=== PATIENT | male | born 1945 | race Caucasian/White ===

== ENCOUNTER 2024-10-16 09:59 | Outpatient (OUT) | payer OTHER, SELFPAY ==
--- NOTE | 2024-10-16 10:02 | US_ITS ---
The [address] [address] Patient Name: KYRA PRATER MRN: [id number] date: 1945 Sex: M Assigned Patient Location: US Current Patient Location: US Accession/Order Number: [id number] Exam Date: 10/16/2024 10:25 Report Date: 10/16/2024 12:50 At the request of: CELIO VILLEGAS Procedure: US abdominal aortic aneurysm EXAM: US abdominal aortic aneurysm HISTORY: Abdominal Aortic Aneurysm COMPARISON: None. TECHNIQUE: Dickinson scale and color Doppler imaging was utilized. FINDINGS: The proximal aorta measures 2.5 x 2.7 cm Mid aorta 2.7 x 2.3 cm. Distal aorta 3.2 x 3.5 cm. Color flow is noted. The aneurysm contains mural thrombus. US/US abdominal aortic aneurysm IMPRESSION: 3.5 cm distal abdominal aortic aneurysm. Electronically authenticated by: Armando MCNAIR Date: 10/16/2024 12:50
== END 2024-10-16 10:00 | disposition home or self-care (01) ==
LOC: US 09:59
PROVIDERS: PCP Family Medicine; Visit Provider Family Medicine
DX: I71.40 Abdominal aortic aneurysm, without rupture, unspecified (principal)
CPT/HCPCS: 76775